=== PATIENT | female | born 1990 | race American Indian/Alaskan Native ===

== ENCOUNTER 2019-07-16 22:30 | Emergency (ER) | payer MEDICAID ==
--- NOTE | 2019-07-17 03:55 | Emergency Department Report ---
Abscess Boil HPI - [facility] Chief Complaint: Wound/Laceration Stated Complaint: HOLE UNDER ARM Time Seen by Provider: 07/17/19 03:49 Duration: 1 Day Location: Upper Extremity (left axillary) History: No Fever, No Pain, No Purulent Drainage, No Numbness, No Foreign Body, No Previous History, No Insect Bite HPI: 29-year-old -[place] female presents to the emergency room for a bump that has opened up under her left axilla. Patient reports is very painful denies any drainage. Patient denies any fever or chills. Patient states that she has had a bump under there for over 6 months but just started having pain and burst yesterday. Home Medications: Previous Rx's Medication Instructions Recorded Last Taken Type Ibuprofen [Motrin 800 MG tab] 800 mg PO Q8HR PRN #21 tablet 07/17/19 Unknown Rx cephALEXin [Keflex] 500 mg PO Q12HR 10 Days #20 cap 07/17/19 Unknown Rx ED Review of Systems ROS: Stated complaint: HOLE UNDER ARM Other details as noted in HPI ED Past Medical Hx - Past Medical History Previous Medical History?: Yes Additional medical history: takes iron pills - Surgical History Past Surgical History?: Yes - Social History Smoking Status: Never Smoker Substance Use Type: None - Medications Home Medications: Home Medications Medication Instructions Recorded Confirmed Last Taken Type Ibuprofen [Motrin 800 MG tab] 800 mg PO Q8HR PRN #21 tablet 07/17/19 Unknown Rx cephALEXin [Keflex] 500 mg PO Q12HR 10 Days #20 cap 07/17/19 Unknown Rx ED Abscess Boil Physical Exam - Exam General: Vital signs noted. No distress. Alert and acting appropriately. Left axillary Size: 2 cm Exam: Yes Tenderness, Yes Surrounding Cellulites/Erythema, Yes Normal Neurologic Exam, Yes Normal Circulation, No Fluctuance, No Heart Murmur ED Course Vital Signs 07/16/19 22:41 Temperature 98.8 F Pulse Rate 96 H Respiratory 18 Rate Blood Pressure 154/61 O2 Sat by Pulse 100 Oximetry Critical care attestation.: If time is entered above; I have spent that time in minutes in the direct care of this critically ill patient, excluding procedure time. ED Medical Decision Making - Medical Decision Making 29-year-old -[place] female presents to the emergency room for a bump that has opened up under her left axilla. Patient reports is very painful denies any drainage. Patient denies any fever or chills. Patient states that she has had a bump under there for over 6 months but just started having pain and burst yesterday. Patient has an abscess that is not able to be drained. Patient will be placed on Keflex ibuprofen and to follow-up with Dr. Baez or [facility]. ED Disposition Clinical Impression: Boil, axilla Disposition: TO HOME OR SELFCARE Is pt being admited?: No Does the pt Need Aspirin: No Condition: Stable Instructions: Furunculosis and Carbunculosis (ED) Additional Instructions: Complete antibiotics as prescribed. Take pain medication as needed. Follow-up with the primary care provider if your symptoms persist or gets worse. Prescriptions: cephALEXin [Keflex] 500 mg PO Q12HR 10 Days #20 cap Ibuprofen [Motrin 800 MG tab] 800 mg PO Q8HR PRN #21 tablet PRN Reason: Pain , Severe (7-10) Referrals: MARCELINO ABEZ MD [Staff Physician] - 3-5 Days Forms: Work/School Release Form(ED)
[2019-07-17 04:09] VITALS: BP 126/86
== END 2019-07-17 04:12 | disposition home or self-care (01) ==
LOC: ED 22:30
DX: L02.422 Furuncle of left axilla (principal); Z98.890 Other specified postprocedural states; Z79.899 Other long term (current) drug therapy
CPT/HCPCS: 99282